=== PATIENT | female | born 1985 | race Caucasian/White ===

== ENCOUNTER 2023-05-21 17:08 | Emergency (ER) | payer MEDICARE, MEDICAID, SELFPAY ==
[2023-05-21 17:09] VITALS: BP 151/90; PULSE 93; RESP 18; TEMP 36.2; O2SAT 98; BMI 49.9
--- NOTE | 2023-05-21 18:08 | ED.VIS.BACK ---
HPI History of Present Illness Chief Complaint: Back Informant: patient, legal guardian and family Narrative Narrative: Patient presents with right lower back and upper buttock pain. This has been going on for at least a few days. She will occasionally get back pain. But this is sometimes making her it harder to set up and twist. She is able to get up and walk around but it is more sore. There has been no fall or trauma. No fevers or chills. No abdominal pain. No nausea vomiting. The family has noted that she is urinating more frequently for the past week. But she denies that it martin. She has never had kidney stone. She states she does not at all feel sick. Family states that she is acting eating and drinking normally. The only thing they have noticed that she favors that side when she walks and she has been urinating slightly more frequently. They gave her Motrin and that seemed to help the pain quite a bit. PFSH PFSH Allergy/AdvReac Type Severity Reaction Status Date / Time No Known Allergies Allergy Verified 05/21/23 17:10 ROS ROS ED Constitutional Constitutional ED: Denies chills or fever(s) ENT ENT ED: Denies rhinorrhea or sore throat Cardiovascular Cardiovascular: Denies chest pain or palpitations Respiratory/Chest Respiratory/Chest: Denies dyspnea Gastrointestinal Gastrointestinal: Denies diarrhea, nausea or vomiting Genitourinary Genitourinary ED: Reports urinary frequency; Denies dysuria or hematuria Musculoskeletal Musculoskeletal: Reports back pain; Denies myalgias or neck pain Integumentary Denies abscess, Abrasions or rash Neurologic Neurologic: Reports other Details: No radiation of pain down in the leg at all. ; Denies paresthesias or weakness Endocrine Endocrinology: Denies polydipsia Allergic/Immunologic Allergic/Immunologic ED: Denies urticaria EXAM Physical Exam Narrative Exam Narrative: Patient is awake alert comfortable sitting on bed. She answers yes and no to questions. This is her baseline. HEENT shows no sign of trauma. Mucous membrane is moist. Neck is supple. Lungs are clear bilaterally breathing is easy and unlabored and her saturations are normal at 98% on room air showing no hypoxia. Heart is regular. I hear no murmur. Peripheral pulses are normal x4. Abdomen is obese but completely benign. I do not get any tenderness anywhere including none in the suprapubic area. No rashes. Patient does not have CVA tenderness or tenderness is really over the right upper buttock near the iliac crest. But there are no skin changes or rash. There is no vesicles that I see there. The skin is not red or warm. Extremities show no weakness. There is no rash. Pulses and color are normal. No mottling. No asymmetry. Const Vital Signs: 05/21/23 17:09 Temperature 97.2 F L Temperature Source Temporal Pulse Rate 93 Respiratory Rate 18 Blood Pressure 151/90 H Blood Pressure Mean 110 Pulse Ox 98 Oxygen Delivery Method Room Air MDM MDM MDM Narrative Medical decision making narrative: Patient's history and exam seem very consistent with musculoskeletal lower right back and buttock pain. It hurts to move twist walk slightly and it is tender. She has had no fevers or recent infections. I do not think this is septic joint. I can passively rotate her hip without any pain at all. But she is also had increased frequency of urination so we will check BG T and urinalysis. Patient's urinalysis is totally normal. No sign of blood or infection. Patient's test is negative. Patient's blood glucose test is negative/101/normal. Patient family has been talking. They feel that her mattress is probably bed. She states it hurts more when she lays on her mattress but it gets better she walks around during the day. Her mattress is over 5 years old. Her exam is more consistent with musculoskeletal pain. But there is no pain with hip range of motion. I do not think this is septic joint. I do not see any indication of shingles. I do not think she needs CT scan looking for kidney stone. I do not think blood work will help us. We discussed appropriate dosing of Motrin. Patient usually only takes liquid medicines. We discussed reasons for return and follow-up. Lab Data Attestation: I reviewed the patient's lab results. Labs: Laboratory Results - last 24 hr 05/21/23 05/21/23 18:18 18:30 Urine Color Yellow Urine Clarity Clear Urine pH 6.0 Ur Specific Imperial 1.010 Urine Protein Negative Urine Glucose (UA) Normal Urine Ketones Negative Urine Occult Blood 10 H Urine Nitrite Negative Urine Bilirubin Negative Urine Urobilinogen Normal Ur Leukocyte Esterase Negative Urine RBC 0 SEEN Urine WBC 0 SEEN Ur Squamous Epith Cells 0 SEEN Urine Bacteria 0 SEEN Urine Mucus 0 SEEN Urine Test Negative POC Glucose 101 Discharge Plan Triage Chief Complaint: Back Other Complaint: Flank Pain ED Provider: Johnnie Cowan Dx/Rx/DC Orders Clinical Impression: Lower back pain Instructions: ED Back Sprain/Strain Primary Care Provider: Care Physician,Sandra Primary Referrals: NOT,DEFINED [Non-Staff] - Activity Restrictions/Additional Instructions: You may take ibuprofen/Motrin at 200 mg to 400 mg 3 times a day as needed for pain. You may want to take this with food to avoid upset stomach. Disposition Disposition: Home, Self Care
[2023-05-21 18:37] LABS: Bacteria 0 SEEN /hpf (None Seen); Color, Urine Yellow (Yellow); Glucose, Dipstick Normal (Normal); Ketone-Dipstick Negative (Negative); Leukocyte Esterase-Dipstick Negative /ul (Negative); Mucous, Urine 0 SEEN /hpf (<or=2+); Nitrite-Dipstick Negative (Negative); Occult Blood-Urine 10 /ul (Negative); Protein-Dipstick Negative (Negative); Red Blood Cells-Urine 0 SEEN /hpf (0-5); Squamous Epithelial Cells - UA 0 SEEN /hpf (5-10); Urine Bilirubin Dipstick Negative (Negative); Urine Clarity Clear (Clear); Urine Urobilinogen Normal (Normal); White Blood Cells 0 SEEN /hpf (0-5)
[2023-05-21 18:38] LABS: Bedside Glucose 101 mg/dL (74-106)
[2023-05-21 18:44] LABS: Internal QC Validated? YES +Cl - CLEAR BKGD; Pregnancy, Urine Negative Negative
[2023-05-21 19:32] VITALS: RESP 18
[2023-05-21 19:35] VITALS: RESP 16
== END 2023-05-21 19:35 | disposition home or self-care (01) ==
PROVIDERS: Emergency Provider Emergency Medicine; Visit Provider Emergency Medicine
DX: M54.50 Low back pain, unspecified (principal); R35.0 Frequency of micturition
CPT/HCPCS: 81001; 81025; 82962; 99282

== ENCOUNTER → 2023-09-10 | Outpatient (CLI) | payer MEDICARE, MEDICAID, SELFPAY ==
[2023-09-10 12:22] LABS: Vitamin D,25 Hydroxy 38.5 ng/mL
[2023-09-10 13:06] LABS: ALB/GLOB Ratio 0.6 RATIO (0.9-2.4); AST(SGOT) 40 U/L (15-37); Alanine Aminotransfer ALT/SGPT 46 U/L (13-56); Albumin, Serum 3.2 g/dL (3.2-5.0); Alkaline Phosphatase 70 U/L (45-117); Anion Gap 8 (5-15); BUN 12 mg/dL (7-18); BUN/Creat Ratio 15.2 RATIO (10-20); Chloride 110 mmol/L (98-107); Cholesterol 133 mg/dL (200); Creatinine, Serum 0.79 mg/dL (0.55-1.02); EST Glomerular Filtration Rate 86 mL/min (>60); Est Glom Filt Rate - Afr Amer 104 mL/min (>60); Glucose 123 mg/dL (74-106); High Density Lipoprotein 34 mg/dL; Potassium 4.8 mmol/L (3.5-5.1); Protein, Total 8.2 g/dL (6.4-8.2); Sodium Level 137 mmol/L (136-145); Thyroid Stim Hormone (TSH) 0.86 uIU/mL (0.358-3.74); Triglycerides 136 mg/dL; Very Low Density Lipoprotein 27 mg/dL (5-40)
== END | disposition home or self-care (01) ==
LOC: MFPLAB 11:09
PROVIDERS: PCP Family Medicine; Visit Provider Family Medicine
DX: E66.01 Morbid (severe) obesity due to excess calories (principal); Z13.21 Encounter for screening for nutritional disorder; Z13.1 Encounter for screening for diabetes mellitus; Z13.220 Encounter for screening for lipoid disorders
CPT/HCPCS: 36415; 80053; 80061; 82306; 84443

== ENCOUNTER 2024-08-23 20:28 | Emergency (ER) | payer MEDICARE, MEDICAID, SELFPAY ==
[2024-08-23 20:29] VITALS: BP 137/111; PULSE 92; RESP 18; TEMP 37.1; O2SAT 99; BMI 46.4
[2024-08-23 22:19] VITALS: BP 136/84; PULSE 81; RESP 18; TEMP 37.3; O2SAT 99
--- NOTE | 2024-08-23 22:31 | RAD_ITS ---
EXAM: XR SOFT TISSUE NECK CLINICAL INDICATION: Sore throat TECHNIQUE: Frontal and lateral views of the soft tissues of the neck. COMPARISON: No relevant prior studies available. FINDINGS: AIRWAY: No significant abnormality. Grossly patent. SOFT TISSUES: No significant abnormality. No radiopaque foreign body. No pathologic thickening or enlargement of the epiglottis. RAD/Neck for Soft Tissue IMPRESSION: Negative neck x-rays. Electronically Signed: James Chahal DO at 23:05 EST ,
--- NOTE | 2024-08-23 22:34 | EDS_ITS ---
HPI HPI - URI History of Present Illness Chief Complaint: Sore Throat Informant: patient and parent Onset/Context/Timing Onset: Today Context: Sudden Onset Timing: Continuous Location: Throat Worsened by: Swallowing and - (Talking) Relieved by: - (Nothing) Associated Symptoms Associated Symptoms: Positive for Nonproductive cough; Negative for Nasal Congestion, Headache, Sinus Pressure, Myalgias, Nausea, Vomiting, Diarrhea, Shortness of Breath, Chest Pain, Hemoptysis or Productive Cough Narrative Narrative: Patient presents with sore throat that began today. Patient states it began rather suddenly. Patient states it is constant. Patient states it is worse with swallowing. Patient has been taking honey with no improvement. Patient admits to a nonproductive cough. Patient denies any fevers or chills. Patient also states her pain is worse with talking. Patient states it feels like it is further down her throat. Patient denies any shortness of breath. ROS ROS ED Constitutional Constitutional ED: Denies chills or fever(s) Eyes Eyes: Denies blurry vision or change in vision ENT ENT ED: Denies rhinorrhea or sore throat Cardiovascular Cardiovascular: Denies chest pain or palpitations Respiratory/Chest Respiratory/Chest: Reports cough; Denies dyspnea Gastrointestinal Gastrointestinal: Denies nausea or vomiting Genitourinary Genitourinary ED: Denies dysuria or hematuria Musculoskeletal Musculoskeletal: Denies back pain or neck pain Integumentary Denies abscess or rash Neurologic Neurologic: Denies headache(s) or weakness Allergic/Immunologic Allergic/Immunologic ED: Denies mouth swelling or urticaria PFSH PFSH Medical History no medical history Home Medications ?Medication ?Instructions ?Recorded ?Last Taken ?Type NK 08/23/24 Unknown History Allergy/AdvReac Type Severity Reaction Status Date / Time No Known Allergies Allergy Verified 08/23/24 20:31 Family History no significant family his Surgical History no surgical history Social History Smoking Status: Never smoker EXAM Physical Exam Const Vital Signs: 08/23/24 20:29 08/23/24 22:19 08/23/24 22:25 Temperature 98.8 F 99.2 F H Temperature Source Oral Oral Pulse Rate 92 81 Respiratory Rate 18 18 Respiratory Effort Normal Non-Labored Respiratory Pattern Normal Blood Pressure 137/111 H 136/84 H Blood Pressure Mean 119 101 Pulse Ox 99 99 Oxygen Delivery Method Room Air Room Air Positive well nourished and well developed General Appearance ED: well developed and NAD HEENT Reports moist mucous membranes HEENT Narrative: Oropharynx is mildly erythematous. There is no unilateral swelling noted. Airway is patent. There are no exudates noted. Neck is supple. Trachea is midline there is no JVD. There is no sublingual edema. There is no evidence of Darian's angina. normocephalic Throat: posterior oropharynx abnormal Positive for erythema Eyes PERRL and EOMs intact bilaterally Neck supple, no meningeal signs and no JVD Resp normal respiratory effort and clear to auscultation bilaterally Cardio Rate: regular rate Rhythm: regular rhythm Neuro oriented x3, CN's II-XII intact bilaterally and no sensory deficits noted Sensorium / Orientation: alert Motor Exam: strength 5/5 throughout Psych mental status grossly normal MDM MDM MDM Narrative Medical decision making narrative: Differential diagnosis includes strep pharyngitis, viral pharyngitis, parapharyngeal abscess, and viral upper respiratory infection. Soft tissue neck x-rays will be obtained to assess for parapharyngeal abscess and swelling. Rapid strep will be obtained to assess for strep pharyngitis. COVID-19, influenza, and RSV PCR will be obtained to assess for viral pharyngitis and viral upper respiratory infection. Lab Data Attestation: I reviewed the patient's lab results. Lab results narrative: Rapid strep was reviewed and was negative. Radiography Diagnostic Testing: Clinical Impression(s) from Imaging Studies Soft Tissue Neck X-Ray 08/23/24 22:31 IMPRESSION: Negative neck x-rays. Electronically Signed: James Chahal DO at 23:05 EST , Soft tissue neck x-ray was obtained. There are 2 views. On my independent interpretation, there is no soft tissue swelling noted. There is no evidence of any airway compromise. Radiologist also interpreted the x-rays and agrees. Treatment and Re-Evaluation Narrative: Patient refused viral testing. Patient was advised of her findings. Patient was instructed to drink plenty of fluids. Patient was instructed to take Tylenol or ibuprofen as needed for pain or fevers. Patient was instructed to follow-up with her primary care physician in 5 to 7 days. Patient understood and was agreeable with plan. All questions were answered. Discharge Plan Triage Chief Complaint: Sore Throat ED Provider: Jamey Walters Dx/Rx/DC Orders Clinical Impression: Viral pharyngitis, Body mass index (BMI) of 40.0 to 49.9 Instructions: ED Pharyngitis, Viral Prescriptions: No Action NK Primary Care Provider: Maciej Toney Referrals: Maciej Toney MD [Primary Care Provider] - 5-7 Days Print Language: Latvian Disposition Disposition: Home, Self Care
[2024-08-23 23:00] VITALS: BP 109/88; PULSE 80; RESP 18; TEMP 36.9; O2SAT 98
--- NOTE | 2024-08-23 23:15 | ED.RN ---
Pt. declined COVID/Flu/RSV swab at this time. notified.
[2024-08-23 23:58] VITALS: BP 109/88; PULSE 80; RESP 18; TEMP 36.9; O2SAT 98
== END 2024-08-23 23:59 | disposition home or self-care (01) ==
PROVIDERS: Emergency Provider Emergency Medicine; PCP Family Medicine; Visit Provider Emergency Medicine
DX: J02.8 Acute pharyngitis due to other specified organisms (principal); B97.89 Other viral agents as the cause of diseases classified elsewhere
CPT/HCPCS: 70360; 87651; 99283